=== PATIENT | male | born 1995 | race Hispanic/Latino ===

== ENCOUNTER 2025-05-02 09:23 | Emergency (ER) | payer SELFPAY ==
[2025-05-02 09:42] VITALS: BP 146/97; PULSE 67; RESP 16; TEMP 36.7; O2SAT 99
--- NOTE | 2025-05-02 10:40 | ED_ITS ---
HPI - Eye Problem General Chief complaint: Eye Problems Stated complaint: eye problem Time Seen by Provider: 05/02/25 09:54 History of Present Illness HPI Narrative: This is a 30-year-old male with no significant past medical history who presents the ED for eye pain. Patient states that for the past few days he has been having pain to his left eye which occasionally happening as dust in his eye. He states that about a year ago or so, he did have a shingle hit his left eye and since then, he has had intermittent pain to the eye. He has had blurry vision since then. Denies fevers, chills. Related Data Allergies Allergy/AdvReac Type Severity Reaction Status Date / Time No Known Allergies Allergy Verified 05/02/25 09:49 Review of Systems Review of Systems: Gen.: Denies fevers or chills Eyes: As per HPI ENT: Denies congestion Respiratory: Denies shortness of breath or cough CV: Denies chest pain or palpitations GI: Denies abdominal pain nausea, emesis or diarrhea denies burning, urgency, frequency or hematuria Musculoskeletal: Denies back pain or muscle pain Neuro: Denies numbness, tingling, weakness or focal weakness Skin: Denies rash Except as documented, all other systems reviewed and negative Exam Narrative: APPEARANCE: No acute distress, nontoxic, resting in bed HEENT: Normocephalic, atraumatic, OMM. Swelling to the upper and lower eyelids on the left. PERRL EOMI. There are intermittent small scarred portions of cornea over the left iris with minimal fluorescein uptake. Eye: Very small amount of fluorescein uptake to the scarred portions over the cornea as above. Acuity 20/30 on the right and 20/100 on the left. IOP 18 on the left. RESPIRATORY: No respiratory distress CARDIOVASCULAR: Appears well perfused ABDOMINAL: Nondistended MUSCULOSKELETAl: Moves all extremities. No obvious deformities NEURO: Awake and alert. SKIN:: Warm, dry. No rashes lesions or abrasions PSYCHIATRIC: Normal affect/mood, Course Vital Signs Vital signs: Vital Signs Temperature 98.1 F 05/02/25 09:42 Pulse Rate 67 05/02/25 09:42 Respiratory Rate 16 05/02/25 09:42 Blood Pressure 146/97 H 05/02/25 09:42 Pulse Oximetry 99 05/02/25 09:42 Oxygen Delivery Room Air 05/02/25 09:42 Temperature 98.7 F 05/02/25 11:41 Pulse Rate 64 05/02/25 11:41 Respiratory Rate 16 05/02/25 11:41 Blood Pressure 122/77 05/02/25 11:41 Pulse Oximetry 99 05/02/25 11:41 Oxygen Delivery Room Air 05/02/25 09:42 MDM - Eye Problem MDM Narrative Medical decision making narrative: 30-year-old male Presenting for left eye pain. On initial evaluation patient was in no acute distress afebrile, hemodynamic stable. Differentials include but are not limited to: Corneal abrasion, corneal ulcer, glaucoma, globe rupture, conjunctivitis Notable exam findings: There is significant irritation and swelling to the upper and lower eyelids on the left. Sclera is injected on left. IOP normal. Small amount of fluorescein uptake over the scarred portions over the cornea. There is initially concerns for possible hyphema, however, further evaluation of this may have been a certain angle of shadowing from some of the scarring over his eye from prior injury. He did not have any trauma recently so this seems less likely. However, given his prior injury and continued worsening pain without ever being evaluated by an securities and real estate director I did reach out to Ophthalmology at [facility]. Dr. Hudson recommended the patient be started on topical steroids and vigomox. He also recommended Cyclogyl if hyphema with suspected. But again, on re-evaluation there is no evidence of hyphema. I discussed the patient about possible transfer and he was preferring to go home and follow up outpatient at this time. He was given prescriptions for topical prednisone and Vigamox. He was given [facility] ophthalmology clinic information to follow-up this week. Patient was agreeable to this plan. Given strict return precautions. Medical Records Attestation: I reviewed the patient's medical records. Discharge Plan Discharge Clinical Impression: Corneal abnormality Patient Disposition: Home Condition: Stable Instructions: Antibiotic Form Additional Instructions: [place] los esteroides y las gotas antibi?jenn seg?n lo prescrito. Acuda a blank arnold de seguimiento con el [facility]icio [facility]molog[facility]a [facility]. Regrese a urgencias si presenta s?ntomas nuevos o si e stos empeoran. [phone] [facility] ophthalmology [address] Patient Language: [place] Prescriptions: New prednisolone sodium phosphate 1 % drops 1 drp LEFT EYE Q12H Qty: 10 0RF moxifloxacin [Vigamox] 0.5 % drops 1 drp LEFT EYE TID 7 Days Qty: 3 0RF Follow-up/Referrals: PHYSICIAN,RESIN REMOVER [Primary Care Provider, Internal Medicine]
[2025-05-02 11:41] VITALS: BP 122/77; PULSE 64; RESP 16; TEMP 37.1; O2SAT 99
== END 2025-05-02 11:43 | disposition home or self-care (01) ==
PROVIDERS: Emergency Provider Student in an Organized Health Care Education/Training Program
DX: H18.9 Unspecified disorder of cornea (principal)
CPT/HCPCS: 99283